=== PATIENT | female | born 1995 | race Caucasian/White ===

== ENCOUNTER 2022-09-23 09:25 | Emergency (ER) | payer OTHER, SELFPAY ==
[2022-09-23 09:34] VITALS: BP 147/79; PULSE 95; RESP 18; TEMP 37.4; O2SAT 96
--- NOTE | 2022-09-23 09:57 | ED.URI ---
HPI - URI/Sore Throat General Chief Complaint: Upper Respiratory Infection Stated Complaint: sore throat History of Present Illness HPI Narrative: 27-year-old female presents to urgent care with a sore throat that she noticed another night last night. Patient states she gonorrhea fever 2 nights ago and has been taking ibuprofen and Tylenol for this. Denies any congestion, ear pain, vomiting, diarrhea, chest pain, or shortness of breath. Some parts of this dictation were generated by voice recognition software and may contain typographical and/or grammatical inaccuracies. Related Data Home Medications Medication Instructions Recorded Confirmed bupropion HCl 300 mg 24 hr tablet, 300 mg PO DAILY 09/23/22 09/23/22 extended release buspirone 10 mg tablet 10 mg PO DAILY 09/23/22 09/23/22 duloxetine 60 mg capsule,delayed 60 mg PO DAILY 09/23/22 09/23/22 release Allergies Allergy/AdvReac Type Severity Reaction Status Date / Time clindamycin Allergy Intermediate Rash Verified 09/23/22 10:00 Review of Systems Review of Systems: Pertinent positives and pertinent negatives per HPI. PMFSH Comments At the time of my signature, I reviewed and agree with the nursing past medical, surgical, social, and family history. There is no relevant family history pertinent to the patient complaint. Exam Narrative: GENERAL: This is a well-nourished, well-developed patient, in no apparent distress. HEAD: normocephalic, atraumatic. EYES: PERRL. Sclera clear/white. Vision is grossly intact. EARS: External ears normal, auditory canals clear and without drainage, TMs normal without perforation. Hearing grossly intact. NOSE: External nose normal with no obvious nasal discharge, nares without redness, no rhinorrhea. THROAT: Mucous membranes moist, posterior pharynx erythemic NECK: Neck supple, non-tender without lymphadenopathy, masses or thyromegaly. CARDIOVASCULAR: Regular rate and rhythm without murmurs, gallops, or rubs. RESPIRATORY: Clear to auscultation. Breath sounds equal bilaterally. No wheezes, rales, or rhonchi. GASTROINTESTINAL: Abdomen soft, non-tender, nondistended. Bowel sounds are active. No hepato-splenomegaly, or palpable masses. No guarding. SKIN: warm, intact with no suspicious lesions or rash, good texture and turgor. NEURO: awake, alert, and oriented to person, place and time. There were no obvious focal neurologic abnormalities. Course Course Level of Care: Express Care Visit Vital Signs Vital signs: Vital Signs Temperature 99.3 F 09/23/22 09:34 Pulse Rate 95 09/23/22 09:34 Respiratory Rate 18 09/23/22 09:34 Blood Pressure 147/79 H 09/23/22 09:34 Pulse Oximetry 96 09/23/22 09:34 Oxygen Delivery Room Air 09/23/22 09:34 Temperature 99.3 F 09/23/22 09:34 Pulse Rate 95 09/23/22 09:34 Respiratory Rate 18 09/23/22 09:34 Blood Pressure 147/79 H 09/23/22 09:34 Pulse Oximetry 96 09/23/22 09:34 Oxygen Delivery Room Air 09/23/22 09:34 Reviewed MDM - URI/Sore Throat MDM Narrative Medical decision making narrative: After 24 hours on antibiotics throw tooth brush away and start using a new one. Increase your Vitamin C. Do not share drinks. Take Motrin alternating with Tylenol for pain and/or fever alternating every 4 hours. Increase fluids, avoid caffeine. Take a probiotic daily or eat a low sugar yogurt while taking the antibiotic. Follow up with Primary provider if not getting better this week Differential Diagnosis Differential diagnosis: Likely upper respiratory infection, viral infection and pharyngitis Lab Data Attestation: I reviewed the patient's lab results. Labs: Strep Screen Positive Group A Strep *(Reference Range: Negative)* Critical Care Time Critical Care Time Critical Care Time: No Discharge Plan Discharge Clinical Impression: Pharyngitis Qualifiers: Pharyngitis/tonsillitis etiology: strepto
== END 2022-09-23 10:10 | disposition home or self-care (01) ==
PROVIDERS: Emergency Provider Nurse Practitioner Family; PCP Internal Medicine
DX: J02.0 Streptococcal pharyngitis (principal); F41.9 Anxiety disorder, unspecified; F32.A Depression, unspecified
CPT/HCPCS: 87880; 99213; G0463

== ENCOUNTER → 2023-07-05 12:36 | Outpatient (CLI) | payer OTHER, SELFPAY ==
--- NOTE | ~2023-07-05 | MR_ITS ---
EXAMINATION: MRA brain wo con DATE: 07/05/2023 13:16 INDICATION: Cerebral aneurysm. Nocturnal headaches. TECHNIQUE: Magnetic resonance angiography (MRA) of the brain was performed without intravenous contra st with T1-weighted SPGR by the 3D [id number] technique. Maximum intensity projection 3D-reconstr uctions were obtained. COMPARISON: Brain MRI 07/05/2023 FINDINGS: The vertebral arteries are codominant. There is no significant stenosis of basilar artery or the post erior cerebral arteries. There is no significant stenosis in the intracranial internal carotid arteri es or anterior or middle cerebral arteries. Anterior communicating artery is normal. The posterior co mmunicating arteries are normal. There is no aneurysm. IMPRESSION: 1. Normal MRA. Reviewed, dictated and finalized at location E. GEMENT CONSULTANT IMPRESSION: 1. Normal MRA.
--- NOTE | ~2023-07-05 | MR_ITS ---
EXAMINATION: MR brain/brain stem wo/w con DATE: 07/05/2023 13:26 INDICATION: Nocturnal headache. TECHNIQUE: Magnetic resonance imaging (MRI) of the brain and brainstem was performed without and with 20 mL MultiHance intravenous contrast. COMPARISON: None. FINDINGS: There is no intracranial hemorrhage, acute infarction, or abnormal intracranial mass lesion . The ventricles are normal in size. There are mucous retention cysts in left maxillary sinus. The or bits are normal. The mastoid air cells are normal. IMPRESSION: 1. Normal brain. Reviewed, dictated and finalized at location E. TS TRAFFIC CONTROLLER IMPRESSION: 1. Normal brain.
== END ==
PROVIDERS: PCP Internal Medicine; Visit Provider Psychiatry & Neurology Neurology
DX: I67.1 Cerebral aneurysm, nonruptured (principal)
CPT/HCPCS: 70544; 70553; A9577

== ENCOUNTER 2023-08-21 18:35 | Emergency (ER) | payer OTHER, MEDICAID, SELFPAY | END 2023-08-21 19:30 | disposition left against medical advice (07) | LOC: EXPBETH 18:39 | PROVIDERS: Emergency Provider Registered Nurse; PCP Internal Medicine | DX: Z53.21 Procedure and treatment not carried out due to patient leaving prior to being seen by health care provider (principal) | CPT/HCPCS: 99199 ==

== ENCOUNTER 2024-01-14 18:06 | Emergency (ER) | payer BC, SELFPAY ==
[2024-01-14 18:24] VITALS: BP 146/97; PULSE 84; RESP 16; TEMP 36.6; O2SAT 96
--- NOTE | 2024-01-14 18:49 | ED.EAR ---
HPI - Ear Problem General Chief complaint: Ear Stated complaint: Ear Pain Time Seen by Provider: 01/14/24 18:40 Source: patient, RN notes reviewed and old records reviewed Mode of arrival: ambulatory Limitations: no limitations History of Present Illness HPI Narrative: 28 year old female who presents to [facility] with complaints of right ear pain starting last night. Patient reports no known fevers, chills or sweats, denies any sore throat,cough, or any body aches. Patient reports that she has been swimming a lot lately. MD Complaint: ear pain Location: right ear Duration: constant Severity: moderate Discharge from ear: Reports no Treatment prior to arrival: other (cotton to ear) Related Data Home Medications Medication Instructions Recorded Confirmed Saurabhpret 01/14/24 zolmitriptan 5 mg tablet mg 01/14/24 01/14/24 Allergies Allergy/AdvReac Type Severity Reaction Status Date / Time clindamycin Allergy Intermediate Rash Verified 01/14/24 18:09 Review of Systems Review of Systems: CONSTITUTIONAL: Denies malaise, chills, sweats, or fever. EYES: Denies visual changes, redness, or discharge. ENT: Reports no rhinorrhea, congestion, sinus pain, right otalgia and no sore throat. CARDIOVASCULAR: Denies chest pain, palpitations, or edema. RESPIRATORY: Reports no cough.? Denies dyspnea. GASTROINTESTINAL: Denies abdominal pain, nausea, vomiting, diarrhea SKIN: Denies rash or itching. MUSCULOSKELETAL: Denies myalgia. NEUROLOGIC: Reports frequent headaches. All systems reviewed & are unremarkable except as noted in HPI and below PMFSH Past Medical History Medical History (Updated 01/14/24 @ 19:22 by Morenita Farr NP) Anxiety and depression Fracture of left elbow Fracture of right forearm Migraine Surgical History Surgical History (Updated 01/14/24 @ 19:24 by Morenita Farr NP) History of hip surgery 2 screws Hx of appendectomy Hx of cholecystectomy Social History Social History (Updated 01/14/24 @ 19:19 by Morenita Farr NP) Smoking status: Never smoker Living arrangements: with family Gender identity (if verbalized by the patient): Female Comments At time of signature, agree with nursing past medical, surgical, social and family history. There is no relevant family history pertinent to the presenting complaint Exam Narrative: GENERAL: Well-appearing, well-nourished, and in no acute distress. HEAD: Normocephalic EYES: PERRLA, conjunctivae clear ENT: Nares clear, turbinates edematous and erythematous, clear discharge. Mucous membranes moist. TM pearly pandya with dull light reflex bilaterally; no tragal tenderness.Right ear canal red with some excoriation, no drainage noted. Oropharynx erythematous without lesions. Tonsils not enlarged and without exudate, no drooling, no hoarseness, no trismus, uvula midline. NECK: Supple. No lymphadenopathy CHEST: Clear to auscultation, breath sounds equal. No wheezing, rhonchi, rales, or stridor. No respiratory distress, speaks in full sentences.SAO2 96% on room air HEART: Regular rate and rhythm. No murmur heard. SKIN: Warm, dry, no rash. NEURO: Alert and oriented x3. PSYCH: Normal mood and affect Course Course Emergency Course: Patient is aware of diagnosis, understands and agrees to treatment plan.? Anticipatory guidance given.? Patient agrees to follow-up as directed and is aware of reasons to seek care at the emergency department. Portions of this record may have been created with voice recognition software Level of Care: Express Care Visit Vital Signs Vital signs: Vital Signs Temperature 36.6 C 01/14/24 18:24 Pulse Rate 84 01/14/24 18:24 Respiratory Rate 16 01/14/24 18:24 Blood Pressure 146/97 H 01/14/24 18:24 Pulse Oximetry 96 01/14/24 18:24 Oxygen Delivery Room Air 01/14/24 18:24 Temperature 36.6 C 01/14/24 18:24 Pulse Rate 84 01/14/24 18:24 Respiratory Rat
== END 2024-01-14 19:02 | disposition home or self-care (01) ==
PROVIDERS: Emergency Provider Registered Nurse; PCP Internal Medicine
DX: H60.331 Swimmer's ear, right ear (principal)
CPT/HCPCS: 99213; G0463

== ENCOUNTER 2024-05-13 09:24 | Emergency (ER) | payer BC, SELFPAY ==
--- NOTE | 2024-05-13 09:39 | ED.SKABFB ---
HPI - Skin/Abscess/Foreign Bdy General Chief complaint: Skin/Abscess/Foreign Body Stated complaint: Cyst in middle of back Time Seen by Provider: 05/13/24 10:05 Source: patient and RN notes reviewed Mode of arrival: ambulatory Limitations: dementia History of Present Illness HPI narrative: 29-year-old female presents with concern for a cyst on her back. She reports she has had a small cyst there chronically for years. Reports the last couple days it has become red, tender, larger and has been draining. She denies fever, body aches, chills, sweats MD complaint: other (Redness) Related Data Allergies Allergy/AdvReac Type Severity Reaction Status Date / Time clindamycin Allergy Intermediate Rash Verified 01/14/24 18:09 Review of Systems Review of Systems: CONSTITUTIONAL: Denies malaise, chills, sweats, or fever. EYES: Denies redness, or discharge. ENT: Denies rhinorrhea, congestion, swollen lips, swollen tongue CARDIOVASCULAR: Denies chest pain, palpitations, or edema. RESPIRATORY: Denies cough or dyspnea. GASTROINTESTINAL: Denies abdominal pain, nausea, vomiting SKIN: Reports redness, swelling, tenderness to her upper back. Denies purulent drainage, vesicles, bullae, numbness, pain beyond proportion MUSCULOSKELETAL: Denies joint pain or myalgia. NEUROLOGIC: Denies headache. All systems reviewed & are unremarkable except as noted in HPI and below PMFSH Past Medical History Medical History (Updated 05/13/24 @ 10:12 by Petty Corona NP) Anxiety and depression Fracture of left elbow Fracture of right forearm Migraine Surgical History Surgical History (Updated 01/14/24 @ 19:24 by Morenita Farr NP) History of hip surgery 2 screws Hx of appendectomy Hx of cholecystectomy Social History Social History (Updated 01/14/24 @ 19:19 by Morenita Farr NP) Smoking status: Never smoker Living arrangements: with family Gender identity (if verbalized by the patient): Female Comments At time of signature, agree with nursing past medical, surgical, social and family history. There is no relevant family history pertinent to the presenting complaint Exam Narrative: GENERAL: Well-appearing, well-nourished, and in no acute distress. HEAD: Normocephalic, atraumatic. EYES: PERRLA, conjunctivae clear ENT: Mucous membranes moist. NECK: Supple. No lymphadenopathy CHEST: Clear to auscultation. No respiratory distress. HEART: Regular rate and rhythm. SKIN: Warm, dry. Palpable proximally 6 cm in diameter area of Erythema, induration, tenderness, warmth with sharp margins noted to the upper left back. No vesicles, bullae, necrosis, ecchymosis, crepitus noted. NEURO: Alert and oriented x3. PSYCH: Normal mood and affect Course Course Emergency Course: Patient is aware of diagnosis, understands and agrees to treatment plan. Anticipatory guidance given. Patient agrees to follow-up as directed and is aware of reasons to seek care at the emergency department. Portions of this record may have been created with voice recognition software Level of Care: Express Care Visit Vital Signs Vital signs: Vital Signs Temperature 98.2 F 05/13/24 09:42 Pulse Rate 91 05/13/24 09:42 Respiratory Rate 20 05/13/24 09:42 Blood Pressure 107/74 05/13/24 09:42 Pulse Oximetry 100 05/13/24 09:42 Oxygen Delivery Room Air 05/13/24 09:42 Temperature 98.2 F 05/13/24 09:42 Pulse Rate 91 05/13/24 09:42 Respiratory Rate 20 05/13/24 09:42 Blood Pressure 107/74 05/13/24 09:42 Pulse Oximetry 100 05/13/24 09:42 Oxygen Delivery Room Air 05/13/24 09:42 Reviewed. Procedures Abscess I/D back: Date of Incision: 05/13/24 Time of Incision: 10:12 Side (if applicable): left Local Anesthetic: lidocaine 1% Amount of anesthesia used (mL): 4 Technique: incised with #11 blade Irrigation: Yes Packing used?: none I&D Results: Pus MDM - Skin/Abscess/Foreign Bdy MDM Narrative Medical decision making narrative: I evaluated this in the [facility] care. History is obtained from patient who is an independent historian and physical exam was performed.? Available medical records were reviewed. ? Exam findings and relevant testing show no acute concerns or changes; patient is non-toxic appearing and is in no distress. No risk factors or findings concerning for epidural abscess, diskitis, vertebral osteomyelitis, cord compression, cauda equina, vertebral fracture or bone malignancy, AAA, or pyelonephritis. Patient instructed to consider further imaging and workup through their primary care physician as an outpatient if symptoms persist. Does not appear at this time to be erythema multiforme, bullous, SJS, TEN; no evidence at this time to suggest RMSF, NSTI, endocarditis or Lyme disease; patient looks well, nontoxic and is tolerating oral intake; no neurologic signs or symptoms; no headache, photophobia or neck pain; afebrile.? Patient does not have history of of penetrating trauma, laceration, blunt trauma, recent surgery, immunosuppression, malignancy, obesity, alcoholism, corticosteroid use.? Discussed the importance of follow-up, patient agrees; question, cellulitis versus necrotizing soft tissue infection versus abscess.?? Patient is appropriate for outpatient treatment and follow-up. Critical Care Time Critical Care Time Critical Care Time: No Discharge Plan Discharge Clinical Impression: Abscess of skin or subcutaneous tissue Patient Disposition: Home, Self-Care Condition: Stable Instructions: Antibiotic Form Additional Instructions: You have had an abscess drained at [facility]. You may shower - let the soapy water clean your wound, do not scrub it. Keep your wound covered to prevent transmission of infection to other people. Follow up with your primary care physician or in the Emergency Department in 2-3 days for a wound check. Go to the Emergency Department immediately if you develop any of the following symptoms: Fevers, Increased redness or swelling around where your abscess was, Increased pain, or Generalized weakness or vomiting Please see your doctor in 2 days for wound recheck. Please Keep the wound covered and dry. Once a day: wash the wound with soap/water, apply bacitracin or neosporin and re-cover the wound. If you have any worsening of symptoms, including severe pain/swelling/numbness/changes in sensation/weakness, redness which expands more than it is right now or any other concerns please return to the ED immediately. Prescriptions: New sulfamethoxazole-trimethoprim 800-160 mg tablet 1 tablet PO Q12H 7 Days Qty: 14 0RF Follow-up/Referrals: Kenrick,Luiz Teixeira MD [Primary Care Provider] - Time of Disposition: 10:41
[2024-05-13 09:42] VITALS: BP 107/74; PULSE 91; RESP 20; TEMP 36.8; O2SAT 100
== END 2024-05-13 10:46 | disposition home or self-care (01) ==
PROVIDERS: Emergency Provider Nurse Practitioner; PCP Internal Medicine
DX: L02.212 Cutaneous abscess of back [any part, except buttock and flank] (principal)
CPT/HCPCS: 10060; 87070; 87075; 87205; 99213; G0463; J2003

== ENCOUNTER 2024-05-22 09:10 | Emergency (ER) | payer BC, SELFPAY ==
[2024-05-22 09:15] VITALS: BP 132/77; PULSE 92; RESP 20; TEMP 37.1; O2SAT 100
--- NOTE | 2024-05-22 09:22 | ED_ITS ---
HPI - General Adult General Chief complaint: Wound/Laceration Stated complaint: Wound Check/Back Time Seen by Provider: 05/22/24 09:22 Source: patient, RN notes reviewed and old records reviewed Mode of arrival: ambulatory Limitations: no limitations History of Present Illness HPI narrative: 29 year old female who presents to [facility] care today for wound check of left area of upper back where an incision and drainage of an inflammed cyst was performed on the 13 of May in our facility. Patient reports that it is still drainage some milky yellow drainage. Patient reports that she completed antibiotic that was prescribed her and she has been cleansing and applying Neosporin ointment to area and covering with a band-aide. Wound appears healed with no evidence of drainage noted on observation. Patient denies any fevers, chills or sweats.Patient reports area remains sore with some stinging.Patient reports that she did not follow up with her PCP as was instructed in her discharge instructions on the 13 of May. MD complaint: wound check left upper back Onset (ago): day(s) (05/13/2024 I/D performed) Location: back (left upper back) Severity scale (1-10): 3 Treatments prior to arrival: other (cleansing, Neosporin and band-aide) Related Data Home Medications Medication Instructions Recorded Confirmed zolmitriptan 5 mg tablet 5 mg PO DAILY PRN Migraine Headache 05/22/24 05/22/24 Allergies Allergy/AdvReac Type Severity Reaction Status Date / Time clindamycin Allergy Intermediate Rash Verified 05/22/24 09:28 Review of Systems Review of Systems: CONSTITUTIONAL: Denies fever, chills, or sweats. EYES: Denies visual changes, redness, or discharge. ENT: Denies rhinorrhea, congestion, sore throat, or otalgia. CARDIOVASCULAR: Denies chest pain, palpitations, or edema. RESPIRATORY: Denies cough or dyspnea. GASTROINTESTINAL: Denies abdominal pain, nausea, vomiting, or diarrhea. GENITOURINARY: Denies dysuria or hematuria SKIN: Denies rash or itching.reports some milky yellow drainage from I/D site from 05/13/2024 of left upper back wound appears healed, no drainage noted MUSCULOSKELETAL: Denies back pain, joint pain, or myalgia. NEUROLOGIC: Denies headache, numbness, or weakness. PSYCHIATRIC: Positive for history of anxiety or depression. All systems reviewed & are unremarkable except as noted in HPI and below PMFSH Past Medical History Medical History Anxiety and depression Fracture of left elbow Fracture of right forearm Migraine Surgical History Surgical History History of hip surgery 2 screws Hx of appendectomy Hx of cholecystectomy Social History Social History Smoking status: Current every day smoker Tobacco type: e-cigarettes/vaping Alcohol intake: unknown Substance use: current Substance use type: marijuana Living arrangements: with family Gender identity (if verbalized by the patient): Female Comments At time of signature, agree with nursing past medical, surgical, social and family history. There is no relevant family history pertinent to the presenting complaint Exam Narrative: GENERAL: Well-appearing, well-nourished, morbidly obese and in no acute distress. HEAD: Normocephalic, atraumatic. EYES: PERRLA and EOMI. ENT: Nares clear, no rhinorrhea or epistaxis. Mucous membranes moist.TM's normal throat pink with no swelling or redness noted NECK: Supple.no lymphadenopathy CHEST: Clear to auscultation. No respiratory distress.SAO2 100% on room air HEART: Regular rate and rhythm. No murmur heard. Normal peripheral pulses. ABDOMEN: Soft, nontender, nondistended, normal active bowel sounds. EXTREMITIES: Normal range of motion. No edema. SKIN: Warm, dry, no rash. area to left upper back where I/D performed on 05/13/2024, no drainage or any redness noted no fluctuant tissue noted. NEURO: No focal deficits. Alert and oriented x3. Course Course Emergency Course: Patient is aware of diagnosis, understands and agrees to treatment plan.? Anticipatory guidance given.? Patient agrees to follow-up as directed and is aware of reasons to seek care at the emergency department. Portions of this record may have been created with voice recognition software Level of Care: Express Care Visit Vital Signs Vital signs: Vital Signs Temperature 37.1 C 05/22/24 09:15 Pulse Rate 92 05/22/24 09:15 Respiratory Rate 20 05/22/24 09:15 Blood Pressure 132/77 05/22/24 09:15 Pulse Oximetry 100 05/22/24 09:15 Oxygen Delivery Room Air 05/22/24 09:15 Temperature 37.1 C 05/22/24 09:15 Pulse Rate 92 05/22/24 09:15 Respiratory Rate 20 05/22/24 09:15 Blood Pressure 132/77 05/22/24 09:15 Pulse Oximetry 100 05/22/24 09:15 Oxygen Delivery Room Air 05/22/24 09:15 Reviewed Medical Decision Making MDM Narrative Medical decision making narrative: Exam findings and imaging show no acute concerns or changes; patient is non- toxic appearing and is in no distress.? Patient is appropriate for outpatient treatment and follow-up Differential Diagnosis Differential Diagnosis: wound check, healing wound, no tissue fluctuance or redness Medical Records Medical records reviewed: Yes I reviewed the external patient's medical records. Vital Signs Vital Signs: Vital Signs Temperature 37.1 C 05/22/24 09:15 Pulse Rate 92 05/22/24 09:15 Respiratory Rate 20 05/22/24 09:15 Blood Pressure 132/77 05/22/24 09:15 Pulse Oximetry 100 05/22/24 09:15 Oxygen Delivery Room Air 05/22/24 09:15 Temperature 37.1 C 05/22/24 09:15 Pulse Rate 92 05/22/24 09:15 Respiratory Rate 20 05/22/24 09:15 Blood Pressure 132/77 05/22/24 09:15 Pulse Oximetry 100 05/22/24 09:15 Oxygen Delivery Room Air 05/22/24 09:15 reviewed Critical Care Time Critical Care Time Critical Care Time: No Discharge Plan Discharge Clinical Impression: Visit for wound check Patient Disposition: Home, Self-Care Condition: Stable Instructions: Wound Healing and Your Diet (ED) Additional Instructions: Continue to wash area with liquid Dial soap daily apply bacitracin ointment to area do not squeeze watch for any increasing infection--redness, swelling, drainage Tylenol ibuprofen for any fever pain follow up with PCP in 7-10 days for a wound check recheck if develop fever, chills, increasing symptom Go to the ER if your symptoms become worse of if ANY new symptoms develop If your symptoms persist, change or worsen significantly before you can contact your personal physician then please, without delay, go to the emergency department for further evaluation. Follow-up with PCP in 7-10 days or sooner if needed Follow up with PCP soon in regards to your blood pressure which is elevated above threshold for referral. Blood pressure above 120/80 may indicate pre- hypertension. 132/77 Prescriptions: New bacitracin zinc 500 unit/gram ointment 1 applic topical TID Qty: 14 0RF No Action zolmitriptan 5 mg tablet 5 mg PO DAILY PRN (Reason: Migraine Headache) Follow-up/Referrals: Kenrick,Luiz Teixeira MD [Primary Care Provider] - Time of Disposition: 09:43 Quality Marjan Coma Scale Eyes: Open Verbal: Oriented and Alert Motor: Follows Commands [place] Coma Total Score: 15
== END 2024-05-22 09:48 | disposition home or self-care (01) ==
PROVIDERS: Emergency Provider Registered Nurse; PCP Internal Medicine
DX: Z48.01 Encounter for change or removal of surgical wound dressing (principal); F17.290 Nicotine dependence, other tobacco product, uncomplicated; F12.90 Cannabis use, unspecified, uncomplicated
CPT/HCPCS: 99213; G0463